=== PATIENT | male | born 1960 | race African-American/Black ===

== ENCOUNTER 2020-04-10 11:25 | Emergency (ER) | payer OTHER ==
[~2020-04-10] VITALS: Ht 172.7 cm; Wt 149.7 kg
--- NOTE | 2020-04-10 11:30 | NUR ---
Pt BIB [facility] for c/o of chest pain. Patient noted to be groaning and complaining of pain. PT refused to lay still for EKG and groaned when stickers were being placed. Pt attached to bedside monitor. Dr. Garcia at bedside.
[2020-04-10] MEDS ORDERED: KETOROLAC TROMETHAMINE 60 MG INJ IM ONE ×2 (11:32→11:45)
[2020-04-10 12:07] LABS: BASOPHILS # (AUTO) 0.1 K/uL (0.0-8.0); BASOPHILS % (AUTO) 0.5 % (0.0-2.0); EOSINOPHILS # (AUTO) 0.2 K/uL (0.0-0.7); EOSINOPHILS % (AUTO) 1.6 % (0.0-7.0); HEMATOCRIT 34.9 % (36.7-47.1); HEMOGLOBIN 11.2 g/dL (12.5-16.3); LYMPHOCYTES # (AUTO) 2.6 K/uL (20.0-40.0); LYMPHOCYTES % (AUTO) 22.8 % (20.5-51.5); MEAN CORPUSCULAR HGB CONC 32 g/dL (32.5-36.3); MEAN CORPUSCULAR VOLUME 90.5 fL (73.0-96.2); MONOCYTES % (AUTO) 8.5 % (0.0-11.0); NEUTROPHILS # (AUTO) 7.6 K/uL (1.8-8.9); NEUTROPHILS % (AUTO) 66.6 % (38.5-71.5); PLATELET COUNT (AUTO) 273 K/uL (152-348); RED BLOOD CELL COUNT(AUTO) 3.86 MIL/uL (4.06-5.63); WHITE BLOOD COUNT (AUTO) 11.4 K/uL (3.6-10.2)
[2020-04-10 12:13] LABS: CREATININE 3.8 mg/dL (0.6-1.3)
--- NOTE | 2020-04-10 12:55 | NUR ---
IV dc'd noted with tip intact.
--- NOTE | 2020-04-10 13:00 | NUR ---
attempted to DC pt, noted 02 sat fluctuating between 88-90%. Dr. Garcia made aware. Placed pt on 2L 02 via NC.
[2020-04-10 14:41] VITALS: BP 136/65
--- NOTE | 2020-04-10 14:41 | NUR ---
Per Dr. Garcia, pt stable for discharge. DC instructions given and reviewed with pt. Verbalized understanding. left ER in stable condition.
== END 2020-04-10 14:44 | disposition home or self-care (01) ==
LOC: ER 11:25
DX: R07.9 Chest pain, unspecified (principal); I44.0 Atrioventricular block, first degree; N28.9 Disorder of kidney and ureter, unspecified; E11.9 Type 2 diabetes mellitus without complications; I10 Essential (primary) hypertension; E66.9 Obesity, unspecified; Z68.43 Body mass index [BMI] 50.0-59.9, adult; Z20.822 Contact with and (suspected) exposure to COVID-19; R91.8 Other nonspecific abnormal finding of lung field
CPT/HCPCS: 36415; 71045; 80048; 84484; 85025; 87426; 93005; 96372; 99285; J1885; 70030-TC; A4663